=== PATIENT | male | born 1945 | race Caucasian/White ===

== ENCOUNTER 2021-07-25 12:40 | Outpatient (CLI) | payer MEDICARE, OTHER ==
[2021-07-26 00:12] LABS: SARS-CoV-2 PCR by NAA Not Detected (NotDetected)
== END 2021-07-25 12:41 | disposition home or self-care (01) ==
LOC: CSHLAB 12:40
PROVIDERS: ATTEND Internal Medicine Gastroenterology
DX: Z20.822 Contact with and (suspected) exposure to COVID-19 (principal); K63.5 Polyp of colon
CPT/HCPCS: U0003; U0005

== ENCOUNTER 2024-04-16 06:56 | Emergency (ER) | payer MEDICARE | END 2024-04-16 08:05 | disposition home or self-care (01) | LOC: CSHERS 06:56 | DX: H60.92 Unspecified otitis externa, left ear (principal); I10 Essential (primary) hypertension; I48.91 Unspecified atrial fibrillation; E11.9 Type 2 diabetes mellitus without complications; F17.220 Nicotine dependence, chewing tobacco, uncomplicated; F17.290 Nicotine dependence, other tobacco product, uncomplicated; Z79.899 Other long term (current) drug therapy | CPT/HCPCS: 99282 ==

== ENCOUNTER 2025-02-17 07:42 | Outpatient (CLI) | payer OTHER ==
[2025-02-17] MEDS ORDERED: Iopamidol 300 61% 100 ML VIAL FS ONE (12:46)
== END 2025-02-17 07:43 | disposition home or self-care (01) ==
LOC: CSHCT 07:42
DX: R63.4 Abnormal weight loss (principal)
CPT/HCPCS: 74177; Q9967

== ENCOUNTER 2025-04-02 02:33 | Emergency (ER) | payer MEDICARE | END 2025-04-02 03:57 | disposition home or self-care (01) | LOC: CSHERS 02:33 | DX: R33.9 Retention of urine, unspecified (principal); I10 Essential (primary) hypertension; I48.91 Unspecified atrial fibrillation; E11.9 Type 2 diabetes mellitus without complications; F17.290 Nicotine dependence, other tobacco product, uncomplicated; F17.220 Nicotine dependence, chewing tobacco, uncomplicated | CPT/HCPCS: 51702; 51798; 99283 ==